=== PATIENT | male | born 1985 | race Caucasian/White ===

== ENCOUNTER 2024-09-12 17:39 | Emergency (ER) | payer BC ==
[2024-09-12 18:34] LABS: APPEARANCE,URINE CLEAR (Clear); BILIRUBIN,URINE NEGATIVE (Negative); COLOR,URINE YELLOW (Yellow); GLUCOSE,URINE NEGATIVE (Negative); KETONES,URINE NEGATIVE (Negative); LEUKOCYTE ESTERASE,URINE NEGATIVE (Negative); NITRITE,URINE NEGATIVE (Negative); OCCULT BLOOD,URINE NEGATIVE (Negative); PH,URINE 6.5 (5.0-8.0); PROTEIN,URINE TRACE (Negative); UROBILINOGEN,URINE 0.2 (0.2-1.0)
[2024-09-12 18:35] LABS: BASOPHILS ABSOLUTE AUTO 0.1 K/mm3 (0.0-0.2); BASOPHILS PERCENT AUTO 0.8 % (0.0-1.0); EOSINOPHILS ABSOLUTE AUTO 0.3 K/mm3 (0.0-0.4); EOSINOPHILS PERCENT AUTO 2.5 % (0.0-6.0); HEMATOCRIT 49.1 % (42.0-52.0); HEMOGLOBIN 16.8 gm/dl (14.0-18.0); IMMATURE GRAN ABSOLUTE AUTO 0.03 K/mm3 (0.00-0.05); IMMATURE GRAN PERCENT AUTO 0.3 % (0.0-0.4); LYMPHOCYTES ABSOLUTE AUTO 3.1 K/mm3 (1.0-4.8); LYMPHOCYTES PERCENT AUTO 27.6 % (24.0-44.0); MEAN CORPUSCULAR HEMOGLOBIN 28.2 pg (28.0-32.0); MEAN CORPUSCULAR HGB CONC 34.2 g/dl (32.0-36.0); MEAN CORPUSCULAR VOLUME 82.4 fl (83.0-99.0); MEAN PLATELET VOLUME 9.8 fl (9.4-12.4); MONOCYTES ABSOLUTE AUTO 0.7 K/mm3 (0.0-0.8); NEUTROPHILS ABSOLUTE AUTO 7.1 K/mm3 (1.8-7.7); NEUTROPHILS PERCENT AUTO 62.8 % (41.0-71.0); PLATELET COUNT,PLT 301 K/mm3 (150-400); RED BLOOD CELL COUNT 5.96 M/mm3 (4.52-5.90); WHITE BLOOD CELL COUNT,WBC 11.25 K/mm3 (3.9-11.3)
[2024-09-12 18:52] LABS: RBC,URINE 0-5 /hpf (0-5)
[2024-09-12 18:53] LABS: AMORPHOUS SEDIMENT,URINE FEW /hpf (NOT SEEN); BACTERIA,URINE FEW /hpf (FEW); MUCUS,URINE FEW /hpf (FEW); SQUAMOUS EPITHELIAL CELLS,UR 0-5 /hpf (0-5); WBC,URINE 0-5 /hpf (0-5)
[2024-09-12 19:12] LABS: A/G RATIO 1.2 (1-2); ALBUMIN 4.2 g/dl (3.4-5.0); ANION GAP 11.9 (5-15); BILIRUBIN TOTAL 0.4 mg/dL (0.2-1.0); BUN/CREATININE RATIO 13.3 (14-18); CALCIUM 9.7 mg/dL (8.5-10.1); CREATININE 1.2 mg/dL (0.7-1.3); EST CRCL DRUG DOSING (CG) 80.75 mL/min; POTASSIUM,K 3.9 mEq/L (3.5-5.1); PROTEIN TOTAL,TP 7.8 g/dl (6.4-8.2)
[2024-09-12 20:06] LABS: C. TRACHOMATIS BY PCR NOT DETECTED; N. GONORRHOEAE BY PCR NOT DETECTED
== END 2024-09-12 20:27 | disposition home or self-care (01) ==
LOC: JD.ED 17:39
DX: N20.0 Calculus of kidney (principal)
CPT/HCPCS: 36415; 74176; 74176-26; 80053; 81001; 85025; 87491; 87591; 99284